=== PATIENT | male | born 1965 | race Caucasian/White ===

== ENCOUNTER 2016-12-10 08:30 | Emergency (ER) ==
[2016-12-10 08:35] VITALS: BP 136/94; TEMP 96.2; BMI 31.9
[2016-12-10] MEDS ORDERED: ZOFRAN 4 MG/2 ML IVP STA (08:49)
[2016-12-10] MEDS ORDERED: TORADOL IVP STA (08:49)
--- NOTE | 2016-12-10 08:57 | ED.PDOC ---
General ED Provider: Dr. HERNESTO SHARP JR Chief Complaint: Urinary Problem Stated Complaint: LEFT LOWER ABD PAIN. FEELS LIKE KIDNEY STONE. [ End ]3days 96.2 95 20 98% 136/94 10/10 out of norce. BLOOD CLOT ON BRAIN, LUMBAR PROBLEMShtn ks anx. LLQ PAIN[ End ]. : 07/31/16 : im hurting --i think i have a kidney stone: 2 hrs agao: Abdominal pain: Flank pain, Hematuria: Hypertension : Positive: CT Scan. BUN 14. Creatinine 1.21 H. Urine Color Yellow. Urine Clarity Cloudy. Urine pH 8.5. Ur Specific [place] 1.020. Urine Protein Negative. Urine Glucose (UA) Negative. Urine Ketones 2+. Urine Blood 3+. Urine Nitrite Negative. Urine Bilirubin Negative. Urine Urobilinogen 0.2. Ur Leukocyte Esterase Negative. Ketorolac Tromethamine 30 mg. Morphine Sulfate 4 mg. Ondansetron HCl 4 mg. Tamsulosin HCl 0.4 mg. Calculus of ureter: Ureteral Stones (ED). strain all urine--use your norco for pain--flomax 0.4mg q daily #4--fluids--f[facility]--you will need f/u [facility] urology Time Seen by Physician: 08:56 Mode of Arrival: Walk-In Information Source: Patient Exam Limitations: No limitations Primary Care Provider: GONZALEZ BURTON Nursing and Triage Documentation Reviewed and Agree: No Review of Systems - Review Of Systems Constitutional: Reports: Malaise Eyes: Reports: No symptoms Ears, Nose, Mouth, Throat: Reports: No symptoms Respiratory: Reports: No symptoms Cardiac: Reports: No symptoms GI: Reports: Abdominal pain : Reports: Flank pain, Pain Musculoskeletal: Reports: Back pain Skin: Reports: No symptoms Neurological: Reports: No symptoms Endocrine: Reports: No symptoms Hematologic/Lymphatic: Reports: No symptoms All Other Systems: Other Past Medical History - Past Medical History Endocrine: Reports: None Cardiovascular: Reports: Hypertension, Other ([id number] CT radiologyabsence a1 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 - Surgical History General Surgical History: Reports: Appendectomy, Unknown - Family History Family History: Reports: Unknown - Social History Smoking Status: Never smoker Hx Substance Use: No Alcohol Screening: Occasionally Physical Exam - Physical Exam Appearance: Well-appearing, Obese Pain Distress: Moderate Eyes: JAI, EOMI, Conjunctiva clear ENT: Ears normal, Nose normal, Oropharynx normal Neck: Supple Respiratory: Airway patent, Breath sounds clear, Breath sounds equal, Respirations nonlabored Cardiovascular: RRR, Pulses normal, No rub, No murmur GI/: Soft, Nontender, No masses, Bowel sounds normal, No Organomegaly Musculoskeletal: Normal strength, ROM intact, No edema, No calf tenderness Skin: Warm, Dry, Normal color Neurological: Sensation intact, Motor intact, Reflexes intact, Cranial nerves intact, Alert, Oriented Psychiatric: Anxious Interpretation - Radiology Interpretation Radiology Interpretation By: Radiologist Radiology Results: Positive Exam Interpreted: CT Scan (left uvj 4mm stone) Re-Evaluation - Re-Evaluation Time of Re-Evaluation: 09:28 (note old record right uvj stone) Status: Improved Critical Care Note - Critical Care Note Total Time (mins): 0 Course - Course Hematology/Chemistry: 12/10/16 08:50 12/10/16 08:50 Orders, Labs, Meds: Lab Review 12/10/16 08:50 WBC 8.48 RBC 5.87 Hgb 16.8 Hct 49.6 MCV 84.5 MCH 28.6 MCHC 33.9 RDW Coeff of Jitendra 14.0 Plt Count 249 Immature Gran % (Auto) 0.5 Neut % (Auto) 64.8 Lymph % (Auto) 22.3 [place] % (Auto) 7.9 Eos % (Auto) 3.7 Baso % (Auto) 0.8 Immature Gran # (Auto) 0.0 Neut # 5.5 Lymph # 1.9 [place] # 0.7 Eos # 0.3 Baso # 0.1 Sodium 137 Potassium 3.5 Chloride 110 H Carbon Dioxide 19 L Anion Gap 11.5 BUN 15 Creatinine 1.30 H Estimated GFR (MDRD) 58.00 BUN/Creatinine Ratio 11.53 Glucose 186 H Calcium 9.0 Total Bilirubin 0.58 AST 14 L ALT 30 Alkaline Phosphatase 44 L Total Protein 6.5 Albumin 3.3 L Globulin 3.2 Albumin/Globulin Ratio 1.03 Amylase 129 H Lipase 198 H Orders Category Date Time Status ED IV/MEDIPORT/POWERPORT .ONCE EMERGENCY 12/10/16 08:49 Active Old records [ED MEDICAL RECORDS REQUEST] .ONCE EMERGENCY 12/10/16 08:55 Active Old records [ED MEDICAL RECORDS REQUEST] .ONCE EMERGENCY 12/10/16 08:57 Active AMYLASE Stat LAB 12/10/16 08:50 Completed CBC W/ AUTO DIFF Stat LAB 12/10/16 08:50 Completed COMPREHENSIVE METABOLIC PANEL Stat LAB 12/10/16 08:50 Completed LIPASE Stat LAB 12/10/16 08:50 Completed 0.9 % Sodium Chloride [Saline Flush] MEDS 12/10/16 08:49 Discontinued 1 syr IVF PRN PRN Ketorolac Tromethamine [Toradol] MEDS 12/10/16 08:49 Discontinued 30 mg IVP ONCE STA Ondansetron HCl/Pf [Zofran 4 mg/2 ml] MEDS 12/10/16 08:49 Discontinued 4 mg IVP ONCE STA CT ABDOMEN/PELVIS WO CONTRAST Stat RADS 12/10/16 08:49 Completed Medications Discontinued Medications Generic Name Dose Route Start Last Admin Trade Name Freq PRN Reason Stop Dose Admin Ketorolac Tromethamine 30 mg 12/10/16 08:49 12/10/16 09:02 Toradol IVP 12/10/16 08:50 30 mg ONCE STA Administration Ondansetron HCl 4 mg 12/10/16 08:49 12/10/16 09:01 Zofran 4 Mg/2 Ml IVP 12/10/16 08:50 4 mg ONCE STA Administration Sodium Chloride 1 syr 12/10/16 08:49 12/10/16 09:02 Saline Flush IVF 1 syr PRN PRN Administration To flush IV Vital Signs: Temp Pulse Resp BP Pulse Ox 12/10/16 08:32 96.2 F L 95 H 20 136/94 H 98 Departure - Departure Time of Disposition: 10:18 Disposition: HOME SELF-CARE Discharge Problem: Urolithiasis Instructions: Ureteral Stones (ED) Condition: Good Pt referred to PMD for follow-up: Yes Additional Instructions: Left sided stone should pass Toradol or aleve for pain strain all urine flomax daily Increase fluids [facility] You will need follow up with urology Return if pain not controlled if fever over 101.0 if visible blood in urin (may follow up with hospital with urology on staff) Prescriptions: Ketorolac Tromethamine [Toradol] 10 mg PO QID PRN #20 tablet PRN Reason: PAIN Tamsulosin HCl [Flomax] 0.4 mg PO DAILY #30 cap.er.24h Allergies/Adverse Reactions: Allergies Penicillins Adverse Reaction (Verified 12/10/16 08:31) Home Medications: Ambulatory Orders Clonazepam [Klonopin] 0.5 mg PO BID 07/31/16 Hydrocodone/Acetaminophen [Lortab 10-325 mg Tablet] 1 each PO Q3-4H PRN Ketorolac Tromethamine [Toradol] 10 mg PO QID PRN #20 tablet 12/10/16 Tamsulosin HCl [Flomax] 0.4 mg PO DAILY #30 cap.er.24h 12/10/16
[2016-12-10 09:00] LABS: BASOPHILS # (AUTO) 0.1 K/uL (0-0.2); BASOPHILS % (AUTO) 0.8 % (0.0-3.0); EOSINOPHILS # (AUTO) 0.3 K/ul (0.0-0.7); EOSINOPHILS % (AUTO) 3.7 % (0.0-7.0); HEMATOCRIT 49.6 % (42.0-52.0); HEMOGLOBIN 16.8 g/dl (14.0-18.0); IMMATURE GRANULOCYTE % (AUTO) 0.5 % (0.0-5.0); LYMPHOCYTES # (AUTO) 1.9 K/uL (0.60-3.4); LYMPHOCYTES % (AUTO) 22.3 (10.0-50.0); MEAN CORPUSCULAR HEMOGLOBIN 28.6 pg (27.0-31.0); MEAN CORPUSCULAR HGB CONC 33.9 (31.8-35.4); MEAN CORPUSCULAR VOLUME 84.5 fl (80.0-94.0); MONOCYTES # (AUTO) 0.7 K/uL (0.4-2.0); MONOCYTES % (AUTO) 7.9 (0-10); NEUTROPHILS # (AUTO) 5.5 K/ul (2.0-6.9); NEUTROPHILS % (AUTO) 64.8; PLATELET COUNT 249 10^3/uL (140-440); RED BLOOD COUNT 5.87 10^6/ul (4.70-6.10); WHITE BLOOD COUNT 8.48 K/ul (4.2-10.2)
[2016-12-10 09:19] LABS: ALBUMIN 3.3 g/dL (3.4-5.0); ALBUMIN/GLOBULIN RATIO 1.03; ANION GAP 11.5; BILIRUBIN,TOTAL 0.58 mg/dL (0.00-1.20); BUN/CREATININE RATIO 11.53; CREATININE 1.3 mg/dL (0.60-1.10); POTASSIUM 3.5 mmol/L (3.5-5.1); TOTAL PROTEIN 6.5 g/dL (6.4-8.2)
--- NOTE | 2016-12-10 10:03 | CT ---
EXAM: CT Abdomen without contrast. CT Pelvis without contrast. HISTORY: Left flank pain. COMPARISON: 07/31/2016. TECHNIQUE: Multiple axial images of the abdomen and pelvis were obtained without intravenous contra st. Images were reformatted in the coronal plane. FINDINGS: Please note that evaluation of the abdominal and pelvic structures is limited due to lack of intravenous contrast. Right lower lobe subpleural nodule on axial image 1 is incompletely imaged but probably stable from prior study. Degenerative changes present in the spine. The liver, gallbladder, pancreas, spleen, and adrenal glands demonstrate normal contour. There is a 0.7 cm nonobstructing right renal calculus. There is mild left hydronephrosis/hydroureter secondar y to a 0.4 cm calculus in the distal left ureter just above ureteral vesicle junction. Bladder is n ot well distended. The bowel is normal in course and caliber without evidence for obstruction or inflammatory process. The appendix is normal. Small fat-containing umbilical hernia noted. No free fluid or free air id entified. IMPRESSION: 1. A 0.4 cm obstructing calculus in the distal left ureter causing mild left hydronephrosis. 2. Right nephrolithiasis. 3. Stable right basilar pulmonary nodule which requires followup in 9 months.
== END 2016-12-10 10:37 | disposition home or self-care (01) ==
LOC: ED 08:30
DX: N20.1 Calculus of ureter (principal); Z87.442 Personal history of urinary calculi; Z79.899 Other long term (current) drug therapy; I10 Essential (primary) hypertension
CPT/HCPCS: 36415; 80053; 82150; 83690; 85025; 96374; 96375; 99283

== ENCOUNTER 2018-11-23 18:38 | Emergency (ER) | payer OTHER ==
[2018-11-23 18:47] VITALS: BP 142/94; TEMP 96.1; BMI 37.3
[2018-11-23] MEDS ORDERED: DILAUDID 1 MG/ML SYRINGE IVP STA (18:53)
[2018-11-23] MEDS ORDERED: SODIUM CHLORIDE 1,000 ML IV STA (18:53)
[2018-11-23] MEDS ORDERED: ZOFRAN 4 MG/2 ML IVP STA (18:54)
[2018-11-23] MEDS ORDERED: TORADOL IVP STA (20:02)
--- NOTE | 2018-11-23 20:27 | CT ---
EXAM: CT scan abdomen pelvis with and without contrast HISTORY: Right-sided pain COMPARISON: CT scan pelvis 12/10/2016 FINDINGS: Contiguous axial images obtained through the abdomen pelvis both before after uneventful a dministration intravenous contrast utilizing 3-mm collimation. The sagittal and coronal reconstructi ons were imaged and reviewed. There is minimal atelectasis within the inferior lingula. There is st able subpleural bibasilar nodule.. Gallbladder is fluid without cholelithiasis. The liver, pancrea s, spleen and adrenal glands have normal enhanced CT appearance.. The left kidney is unremarkable. There is 10 mm calculus within the right renal pelvis without obstruction.. Potentially this could a ct with a ball valve mechanism causing obstruction.. There is 9 mm probable cyst upper pole right k idney which is too small to characterize.. Prostate gland is normal in size. Bladder is is small vo lumed limiting evaluation. There is a normal retrocecal appendix. There is a small fat-containing umbilical hernia IMPRESSION: 10 mm nonobstructive calculus right renal pelvis. Normal appendix. No evidence of free fluid. Stable small subpleural bibasilar nodules
--- NOTE | 2018-11-23 20:45 | ED.PDOC ---
General ED Provider: Dr. TIMOTEO JORGENSEN-ER Chief Complaint: Abdominal Pain Stated Complaint: brice been hurting off and on for mos Time Seen by Physician: 18:45 Mode of Arrival: Walk-In Information Source: Patient Exam Limitations: No limitations Primary Care Provider: GONZALEZ OH Nursing and Triage Documentation Reviewed and Agree: Yes Does patient meet sepsis criteria?: No System Inflammatory Response Syndrome: Not Applicable Sepsis Protocol: For patient's 13 years and over: Temp is 96.8 and below OR 101 and greater Pulse >90 BPM Resp >20/minute Acutely Altered Mental Status Are patient's symptoms suggestive of a new infection, such as: -Pneumonia -Skin, Soft Tissue -Endocarditis -UTI -Bone, Joint Infection -Implantable Device -Acute Abdominal Infection -Wound Infection -Meningitis -Blood Stream Catheter Infection -Unknown GI Complaint Exam - Abdominal Pain Complaint/Exam Onset: Gradual Duration: 2-3 mos Symptoms Are: Still present Initial Severity: Mild Current Severity: Moderate Location of Pain: Discrete, RUQ Radiates To: Reports: Back Character: Reports: Cramping Associated Signs and Symptoms: Reports: Back pain Quality Indicator For Non-Traumatic Chest Pain/Syncope: EKG Performed Review of Systems - Review Of Systems Constitutional: Reports: No symptoms Eyes: Reports: No symptoms Ears, Nose, Mouth, Throat: Reports: No symptoms Respiratory: Reports: No symptoms Cardiac: Reports: No symptoms GI: Reports: Abdominal pain, Nausea : Reports: Flank pain Musculoskeletal: Reports: Back pain Skin: Reports: No symptoms Neurological: Reports: No symptoms Endocrine: Reports: No symptoms Hematologic/Lymphatic: Reports: No symptoms All Other Systems: Reviewed and Negative Past Medical History - Past Medical History Previously Healthy: No Endocrine: Reports: None Cardiovascular: Reports: Hypertension, Other ([id number] [place] radiologyabsence a1 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 - Surgical History General Surgical History: Reports: Appendectomy, Unknown - Family History Family History: Reports: Unknown - Social History Smoking Status: Never smoker Hx Substance Use: No Alcohol Screening: None - Immunizations Tetanus Shot up to Date: No Physical Exam - Physical Exam Appearance: Well-appearing, No pain distress, Well-nourished Pain Distress: Moderate Eyes: JAI, EOMI, Conjunctiva clear ENT: Ears normal, Nose normal, Oropharynx normal Neck: Supple Respiratory: Airway patent, Breath sounds clear, Breath sounds equal, Respirations nonlabored Cardiovascular: RRR, Pulses normal, No rub, No murmur GI/: Soft, Nontender, No masses, Bowel sounds normal, No Organomegaly Musculoskeletal: Normal strength, ROM intact, No edema, No calf tenderness Skin: Warm, Dry, Normal color Neurological: Sensation intact, Motor intact, Reflexes intact, Cranial nerves intact, Alert, Oriented Psychiatric: Affect appropriate, Mood appropriate Interpretation - Radiology Interpretation Radiology Interpretation By: Radiologist Radiology Results: Positive - EKG Interpretation Time of EKG #1: 20:44 Rate: Normal Rhythm: Sinus Ectopy: None [place]: NL ST Segment: Normal Interpretation: nsr Re-Evaluation - Re-Evaluation Time of Re-Evaluation: 20:44 Status: Improved Vital Signs Stable: Yes Pain Level: 0 Appearance: NAD Lungs: Clear Skin: Warm and Dry Neuro: Alert and Oriented X3 CV: RRR Critical Care Note - Critical Care Note Total Time (mins): 0 Course - Course Hematology/Chemistry: 11/23/18 19:04 11/23/18 19:04 Orders, Labs, Meds: Lab Review 11/23/18 11/23/18 11/23/18 19:00 19:04 19:04 WBC 7.17 RBC 6.44 H Hgb 17.3 Hct 54.4 H MCV 84.5 MCH 26.9 L MCHC 31.8 RDW Coeff of Jitendra 14.9 H Plt Count 233 Immature Gran % (Auto) 0.7 Neut % (Auto) 57.7 Lymph % (Auto) 28.6 Day % (Auto) 6.0 Eos % (Auto) 5.9 Baso % (Auto) 1.1 Immature Gran # (Auto) 0.1 Neut # (Auto) 4.1 Lymph # (Auto) 2.1 Day # (Auto) 0.4 Eos # (Auto) 0.4 Baso # (Auto) 0.1 ESR Sodium 137.8 Potassium 4.07 Chloride 103.7 Carbon Dioxide 22.9 Anion Gap 15.27 BUN 15.9 Creatinine 0.99 Estimated GFR (MDRD) 78.00 BUN/Creatinine Ratio 16.06 Glucose 222.9 H Hemoglobin A1c 6.36 H Calcium 9.02 Total Bilirubin 0.54 AST 30.3 ALT 30.9 Alkaline Phosphatase 58.4 Total Creatine Kinase Troponin I Total Protein 7.23 Albumin 4.33 Globulin 2.90 Albumin/Globulin Ratio 1.49 Amylase Lipase Urine Color Urine Clarity Urine pH Ur Specific [place] Urine Protein Urine Glucose (UA) Urine Ketones Urine Blood Urine Nitrite Urine Bilirubin Urine Urobilinogen Ur Leukocyte Esterase Urine Microscopic RBC Ur Squamous Epith Cells 11/23/18 11/23/18 11/23/18 19:04 19:04 20:02 WBC RBC Hgb Hct MCV MCH MCHC RDW Coeff of Jitendra Plt Count Immature Gran % (Auto) Neut % (Auto) Lymph % (Auto) Day % (Auto) Eos % (Auto) Baso % (Auto) Immature Gran # (Auto) Neut # (Auto) Lymph # (Auto) Day # (Auto) Eos # (Auto) Baso # (Auto) ESR 2 Sodium Potassium Chloride Carbon Dioxide Anion Gap BUN Creatinine Estimated GFR (MDRD) BUN/Creatinine Ratio Glucose Hemoglobin A1c Calcium Total Bilirubin AST ALT Alkaline Phosphatase Total Creatine Kinase 76.4 Troponin I < 0.012 Total Protein Albumin Globulin Albumin/Globulin Ratio Amylase 73.3 Lipase 60.8 Urine Color Yellow Urine Clarity Clear Urine pH 6.0 Ur Specific [place] 1.010 Urine Protein Trace Urine Glucose (UA) 1+ Urine Ketones Negative Urine Blood 3+ Urine Nitrite Negative Urine Bilirubin Negative Urine Urobilinogen 0.2 Ur Leukocyte Esterase Negative Urine Microscopic RBC 30-50 Ur Squamous Epith Cells Not present Orders Category Date Time Status EKG-(ED ONLY) Stat CARDIO 11/23/18 18:53 Completed NPO REMINDER: IMAGING ONCE CARE 11/23/18 18:54 Completed ED IV/MEDIPORT/POWERPORT .ONCE EMERGENCY 11/23/18 18:53 Active AMYLASE Stat LAB 11/23/18 19:04 Completed CBC W/ AUTO DIFF Stat LAB 11/23/18 19:04 Completed COMPREHENSIVE METABOLIC PANEL Stat LAB 11/23/18 19:04 Completed CREATINE KINASE Stat LAB 11/23/18 19:04 Completed ESR Stat LAB 11/23/18 19:04 Completed HEMOGLOBIN A1C Stat LAB 11/23/18 19:00 Completed LIPASE Stat LAB 11/23/18 19:04 Completed TROPONIN I Stat LAB 11/23/18 19:04 Completed URINALYSIS C & S IF INDICATED Stat LAB 11/23/18 20:02 Completed 0.9 % Sodium Chloride [Saline Flush] MEDS 11/23/18 18:52 Ordered 1 syr IVF PRN PRN Hydromorphone HCl [Dilaudid 1 mg/ml Syringe] MEDS 11/23/18 18:53 Discontinued 1 mg IVP ONCE STA Ketorolac Tromethamine [Toradol] MEDS 11/23/18 20:02 Discontinued 30 mg IVP ONCE STA Ondansetron HCl/Pf [Zofran 4 mg/2 ml] MEDS 11/23/18 18:54 Discontinued 4 mg IVP ONCE STA Sodium Chloride 0.9% [Sodium Chloride] 1,000 ml MEDS 11/23/18 18:53 Active IV 100 mls/hr CT ABDOMEN/PELVIS W/WO CONTRAS Stat RADS 11/23/18 18:54 Completed Medications Generic Name Dose Route Start Last Admin Trade Name Freq PRN Reason Stop Dose Admin Sodium Chloride 1,000 mls @ 100 mls/hr 11/23/18 18:53 11/23/18 19:06 Sodium Chloride IV 11/24/18 04:52 100 mls/hr .Q10H STA Administration Sodium Chloride 1 syr 11/23/18 18:52 11/23/18 19:06 Saline Flush IVF 1 syr PRN PRN Administration To flush IV Discontinued Medications Generic Name Dose Route Start Last Admin Trade Name Freq PRN Reason Stop Dose Admin Hydromorphone HCl 1 mg 11/23/18 18:53 11/23/18 19:06 Dilaudid 1 Mg/Ml Syringe IVP 11/23/18 18:54 1 mg ONCE STA Administration Ketorolac Tromethamine 30 mg 11/23/18 20:02 11/23/18 20:08 Toradol IVP 11/23/18 20:03 30 mg ONCE STA Administration Ondansetron HCl 4 mg 11/23/18 18:54 11/23/18 19:06 Zofran 4 Mg/2 Ml IVP 11/23/18 18:55 4 mg ONCE STA Administration i felt we needed to transfer him to [facility] for urology consult but he declined- -he insisted he wouild go to tx tomorrow for referral--warned about sepsis and injury but he still declines Vital Signs: Temp Pulse Resp BP Pulse Ox 11/23/18 18:41 96.1 F L 94 H 16 142/94 H 98 Departure - Departure Time of Disposition: 20:45 Disposition: ADMITTED INPATIENT Discharge Problem: Kidney stone on right side Hyperglycemia due to type 2 diabetes mellitus Qualifiers: Diabetes mellitus prison insulin use: without terminal worker use Qualified Code(s ): E11.65 - Type 2 diabetes mellitus with hyperglycemia Instructions: Renal Colic (ED) Condition: Stable Pt referred to PMD for follow-up: Yes IPMP verified?: No Additional Instructions: toradol 10mg qid prn pain #16---[facility]talk to them about your blood sugar Allergies/Adverse Reactions: Allergies Penicillins Adverse Reaction (Verified 12/10/16 08:31) Home Medications: Ambulatory Orders Clonazepam [Klonopin] 0.5 mg PO BID 07/31/16 Hydrocodone/Acetaminophen [Lortab 10-325 mg Tablet] 1 each PO Q3-4H PRN Ketorolac Tromethamine [Toradol] 10 mg PO QID PRN #20 tablet 12/10/16 Tamsulosin HCl [Flomax] 0.4 mg PO DAILY #30 cap.er.24h 12/10/16 Disposition Discussed With: Patient
== END 2018-11-23 20:52 | disposition home or self-care (01) ==
LOC: ED 18:38
DX: N20.0 Calculus of kidney (principal); E11.65 Type 2 diabetes mellitus with hyperglycemia; I10 Essential (primary) hypertension; R10.9 Unspecified abdominal pain; Z79.899 Other long term (current) drug therapy
CPT/HCPCS: 36415; 80053; 81001; 82150; 82550; 83036; 83690; 84484; 85025; 85651; 93005; 93010; 96361; 96374; 96375; 99283

== ENCOUNTER 2019-03-07 19:25 | Emergency (ER) | payer OTHER ==
[2019-03-07 19:38] VITALS: BP 126/89; TEMP 97.2; BMI 36.9
--- NOTE | 2019-03-07 20:01 | ED.PDOC ---
General ED Provider: Dr. RANDA WALTER Chief Complaint: Kidney Stone Stated Complaint: Patient is a 53 year old male who has a history of Renal stones for over 4 months. 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 States he ran out of Meloxicam prescription. Time Seen by Physician: 20:04 Mode of Arrival: Walk-In Information Source: Patient Primary Care Provider: [facility] Nursing and Triage Documentation Reviewed and Agree: Yes Does patient meet sepsis criteria?: No System Inflammatory Response Syndrome: Not Applicable Sepsis Protocol: For patient's 13 years and over: Temp is 96.8 and below OR 101 and greater Pulse >90 BPM Resp >20/minute Acutely Altered Mental Status Are patient's symptoms suggestive of a new infection, such as: -Pneumonia -Skin, Soft Tissue -Endocarditis -UTI -Bone, Joint Infection -Implantable Device -Acute Abdominal Infection -Wound Infection -Meningitis -Blood Stream Catheter Infection -Unknown Review of Systems - Review Of Systems Constitutional: Reports: No symptoms Eyes: Reports: No symptoms Ears, Nose, Mouth, Throat: Reports: No symptoms Respiratory: Reports: No symptoms Cardiac: Reports: No symptoms GI: Reports: Nausea : Reports: Flank pain Musculoskeletal: Reports: Back pain Skin: Reports: No symptoms Neurological: Reports: No symptoms Endocrine: Reports: No symptoms Hematologic/Lymphatic: Reports: No symptoms All Other Systems: Reviewed and Negative Past Medical History - Past Medical History Previously Healthy: No Endocrine: Reports: None Cardiovascular: Reports: Hypertension, Other ([id number] [place] radiologyabsence a1 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 - Surgical History General Surgical History: Reports: Appendectomy, Unknown - Family History Family History: Reports: Unknown - Social History Smoking Status: Never smoker Hx Substance Use: No Alcohol Screening: None - Immunizations Tetanus Shot up to Date: (unknown) Physical Exam - Physical Exam Appearance: Obese Eyes: JAI, EOMI, Conjunctiva clear ENT: Ears normal, Nose normal, Oropharynx normal Respiratory: Airway patent, Breath sounds clear, Breath sounds equal, Respirations nonlabored Cardiovascular: RRR, Pulses normal, No rub, No murmur GI/: Soft (obese ), Tender (Right lower quadrant ) Musculoskeletal: Normal strength, ROM intact, No edema, No calf tenderness Skin: Warm, Dry, Normal color Neurological: Sensation intact, Motor intact, Reflexes intact, Cranial nerves intact, Alert, Oriented Psychiatric: Anxious Interpretation - Radiology Interpretation Radiology Interpretation By: Radiologist Radiology Results: No acute changes (similar finding of Renal Stone from prior CT) Exam Interpreted: CT Scan Re-Evaluation - Re-Evaluation Time of Re-Evaluation: 21:40 Status: Improved Critical Care Note - Critical Care Note Total Time (mins): 0 Course - Course Hematology/Chemistry: 03/07/19 20:30 03/07/19 20:30 Orders, Labs, Meds: Lab Review 03/07/19 03/07/19 03/07/19 20:30 20:30 21:15 WBC 6.46 RBC 6.33 H Hgb 17.2 Hct 53.0 H MCV 83.7 MCH 27.2 MCHC 32.5 RDW Coeff of Jitendra 13.9 Plt Count 208 Immature Gran % (Auto) 1.1 Neut % (Auto) 52.0 Lymph % (Auto) 30.3 Parker % (Auto) 10.5 H Eos % (Auto) 5.0 Baso % (Auto) 1.1 Immature Gran # (Auto) 0.1 Neut # (Auto) 3.4 Lymph # (Auto) 2.0 Parker # (Auto) 0.7 Eos # (Auto) 0.3 Baso # (Auto) 0.1 Sodium 139.1 Potassium 4.18 Chloride 103.0 Carbon Dioxide 25.2 Anion Gap 15.08 BUN 14.0 Creatinine 1.00 Estimated GFR (MDRD) 78.00 BUN/Creatinine Ratio 14.00 Glucose 147.4 H Calcium 9.03 Total Bilirubin 0.41 AST 29.9 ALT 31.0 Alkaline Phosphatase 66.5 Total Protein 7.32 Albumin 3.85 Globulin 3.47 Albumin/Globulin Ratio 1.10 Urine Color Yellow Urine Clarity Cloudy Urine pH 6.0 Ur Specific [place] >=1.030 Urine Protein 2+ Urine Glucose (UA) Negative Urine Ketones Trace Urine Blood 3+ Urine Nitrite Negative Urine Bilirubin Negative Urine Urobilinogen 0.2 Ur Leukocyte Esterase Negative Urine Microscopic RBC 50-100 Urine Microscopic WBC 0-2 Ur Squamous Epith Cells 0-2 Urine Mucus 2+ Orders Category Date Time Status ED IV/MEDIPORT/POWERPORT .ONCE EMERGENCY 03/07/19 20:20 Active CBC W/ AUTO DIFF Stat LAB 03/07/19 20:30 Completed COMPREHENSIVE METABOLIC PANEL Stat LAB 03/07/19 20:30 Completed URINALYSIS C & S IF INDICATED Stat LAB 03/07/19 21:15 Completed 0.9 % Sodium Chloride [Saline Flush] MEDS 03/07/19 20:21 Discontinued 1 syr IVF PRN PRN Ketorolac Tromethamine [Toradol] MEDS 03/07/19 20:20 Discontinued 30 mg IVP ONCE STA Ondansetron HCl/Pf [Zofran 4 mg/2 ml] MEDS 03/07/19 20:21 Discontinued 4 mg IVP ONCE STA Sodium Chloride 0.9% [Sodium Chloride] 1,000 ml MEDS 03/07/19 20:[address] ABD/PEL WO RENAL STONE PROT Stat RADS 03/07/19 20:22 Completed Medications Discontinued Medications Generic Name Dose Route Start Last Admin Trade Name Freq PRN Reason Stop Dose Admin Sodium Chloride 1,000 mls @ 1,000 mls/hr 03/07/19 20:20 03/07/19 20:40 Sodium Chloride IV 03/07/19 21:19 1,000 mls/hr BOLUS STA Administration Ketorolac Tromethamine 30 mg 03/07/19 20:20 03/07/19 20:46 Toradol IVP 03/07/19 20:21 30 mg ONCE STA Administration Ondansetron HCl 4 mg 03/07/19 20:21 03/07/19 20:43 Zofran 4 Mg/2 Ml IVP 03/07/19 20:22 4 mg ONCE STA Administration Sodium Chloride 1 syr 03/07/19 20:21 03/07/19 20:40 Saline Flush IVF 1 syr PRN PRN Administration To flush IV Vital Signs: Temp Pulse Resp BP Pulse Ox 03/07/19 19:26 97.2 F L 102 H 20 126/89 98 Departure - Departure Time of Disposition: 21:40 Disposition: HOME SELF-CARE Discharge Problem: Kidney stone Instructions: Kidney Stones (ED) Condition: Fair Pt referred to PMD for follow-up: Yes IPMP verified?: No Additional Instructions: Take Medications as prescribed Keep apt with Urologist DO NOT REFILL OR TAKE MELOXICAM WHILE ON TORADOL Prescriptions: Ketorolac Tromethamine [Toradol] 10 mg PO Q6HR #30 tablet Allergies/Adverse Reactions: Allergies Penicillins Adverse Reaction (Verified 03/07/19 19:46) Home Medications: Ambulatory Orders Clonazepam [Klonopin] 0.5 mg PO BID 07/31/16 Tamsulosin HCl [Flomax] 0.4 mg PO DAILY #30 cap.er.24h 12/10/16 Buspirone HCl [Buspar] 20 mg PO BID 03/07/19 Duloxetine HCl 90 mg PO DAILY 03/07/19 Hydrochlorothiazide 25 mg PO DAILY 03/07/19 Hydrocodone Bit/Acetaminophen [[place] 5-325] 1 tab PO 6XD PRN 03/07/19 Ketorolac Tromethamine [Toradol] 10 mg PO Q6HR #30 tablet 03/07/19 Meloxicam 7.5 mg PO DAILY 03/07/19 Topiramate [Topamax] 100 mg PO BID 03/07/19 Disposition Discussed With: Patient
[2019-03-07] MEDS ORDERED: TORADOL IVP STA (20:20)
[2019-03-07] MEDS ORDERED: SODIUM CHLORIDE 1,000 ML IV STA (20:20)
[2019-03-07] MEDS ORDERED: ZOFRAN 4 MG/2 ML IVP STA (20:21)
--- NOTE | 2019-03-07 20:58 | CT ---
EXAM: CT of the abdomen and pelvis without contrast. HISTORY: Right lower quadrant pain. History of kidney stones. PROCEDURE: Contiguous axial CT images of the abdomen and pelvis without contrast with coronal and sa gittal reformats. FINDINGS: There is a stable 6 mm nodule the right lung/lower lobe compared with CT of 07/31/2016. Th ere is an interval increase in size of a 7 mm nodule the left lung/lower lobe. There is minimal left basilar atelectasis. The liver, gallbladder, pancreas, spleen, adrenal glands and left kidney are n ormal in appearance. There is a 1.2 cm calcification in the right renal pelvis with mild right hydro nephrosis. There is a 2 mm nonobstructive calcification in the right kidney. No ureterolithiasis. The bladder is adequately filled and normal in appearance. The abdominal aorta is normal in appearan ce. The appendix is normal in appearance. There is fecal stasis in the colon. No free fluid or bernice e air in the abdomen or pelvis. The seminal vesicles and prostate gland are unremarkable. There is a small umbilical hernia containing only fat. There are degenerative changes in the spine. Impression: Right nephrolithiasis with mild right hydronephrosis as described. Fecal stasis in the colon. Umbilical hernia as described. Interval increase in size of 7 mm nodule the left lung/lower lobe. Recommend follow-up CT in 6 month s to assess stability. Stable 6 mm nodule the right lung as described. Minimal left basilar atelectasis.
== END 2019-03-07 22:40 | disposition home or self-care (01) ==
LOC: ED 19:25
DX: N20.0 Calculus of kidney (principal); Z87.442 Personal history of urinary calculi; Z79.899 Other long term (current) drug therapy
CPT/HCPCS: 36415; 80053; 81001; 85025; 96361; 96374; 96375; 99283